=== PATIENT | female | born 1935 | race Caucasian/White ===

== ENCOUNTER 2022-05-08 06:01 | Day surgery (SDC) | payer MEDICARE, OTHER ==
[~2022-05-08 06:01] MED LIST: Clindamycin Phosphate in D5W 900 MG in Premix Bag 1 BAG IV SCH; Lactated Ringers 1,000 ML IV SCH; Lidocaine 1%/Sod Bicarbonate in NS 8.4% 1 ML Syringe IDERM PRN; Morphine 8 MG, EPINEPHrine 0.3 MG, Ketorolac 30 MG, Sodium Chloride 0.9% 7.9 ML PRN; Morphine 8 MG, EPINEPHrine 0.3 MG, Ketorolac 30 MG, Sodium Chloride 0.9% 7.9 ML SCH; Sodium Chloride 0.9% 10 ML Syringe FLUSH PRN; Sodium Chloride 0.9% 10 ML Syringe FLUSH SCH
[2022-05-08] MEDS ORDERED: Vancomycin 1 GM SDV ONE (06:11)
[2022-05-08] MEDS ORDERED: ceFAZolin 2 GM Vial ONE (06:12)
[2022-05-08] MEDS ORDERED: Propofol 200 MG/20 ML SDV ONE (06:12)
[2022-05-08] MEDS ORDERED: fentaNYL 100 MCG/2 ML SDV ONE (06:13)
[2022-05-08] MEDS ORDERED: Phenylephrine HCl In 0.9% NaCl 1 MG/10 ML Vial ONE ×2 (07:06→07:20)
[2022-05-08] MEDS ORDERED: HYDROmorphone 0.5 MG/0.5 ML Syringe IVPUSH PRN (07:44)
[2022-05-08] MEDS ORDERED: fentaNYL 100 MCG/2 ML SDV IVPUSH PRN (07:44)
[2022-05-08] MEDS ORDERED: Ondansetron 4 MG/2 ML SDV IVPUSH PRN (07:44)
[2022-05-08] MEDS ORDERED: Acetaminophen/HYDROcodone 325-5 MG Tab PO ONE (09:30)
[2022-05-08 13:53] VITALS: PULSE 76
[2022-05-08 13:55] VITALS: BP 123/47
== END 2022-05-08 13:14 | disposition home or self-care (01) ==
LOC: JD.SDS 06:01
PROVIDERS: ATTEND Orthopaedic Surgery
DX: M16.12 Unilateral primary osteoarthritis, left hip (principal); I10 Essential (primary) hypertension; E78.00 Pure hypercholesterolemia, unspecified; I25.10 Atherosclerotic heart disease of native coronary artery without angina pectoris; M81.0 Age-related osteoporosis without current pathological fracture; E83.52 Hypercalcemia; Z79.899 Other long term (current) drug therapy; Z88.0 Allergy status to penicillin; Z88.8 Allergy status to other drugs, medicaments and biological substances; Z88.1 Allergy status to other antibiotic agents; Z98.890 Other specified postprocedural states; Z87.891 Personal history of nicotine dependence
CPT/HCPCS: 0055T; 27130; 36415; 73501; 86850; 86900; 86901; 97116; 97161; A9270; C1713; C1776; J0171; J1885; J2270; J2405; J2704; J3010; J3370; J3490; J7120; 01214; J0690